=== PATIENT | female | born 1960 | race American Indian/Alaskan Native ===

== ENCOUNTER 2021-03-10 16:10 | Emergency (ER) | payer MEDICARE, OTHER ==
[2021-03-10] MEDS ORDERED: NALOXONE 2 MG/2 ML INJ ONE ×2 (18:09→18:24)
[2021-03-10 20:08] VITALS: BP 159/77
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
== END 2021-03-10 21:50 | disposition home or self-care (01) ==
LOC: ED 16:10
DX: M79.10 Myalgia, unspecified site (principal); I10 Essential (primary) hypertension; Z79.899 Other long term (current) drug therapy; V43.52XA Car driver injured in collision with other type car in traffic accident, initial encounter; Y93.89 Activity, other specified; Y92.488 Other paved roadways as the place of occurrence of the external cause; Y99.8 Other external cause status
CPT/HCPCS: 99282; J2310